=== PATIENT | male | born 1945 | race Caucasian/White ===

== ENCOUNTER → 2025-03-04 | Outpatient (CLI) | payer OTHER ==
[2025-03-09 15:53] LABS: ALBUMIN %,URINE 61.9 %; ALPHA-1 %,URINE 3.2 %; ALPHA-2 %,URINE 6.7 %; BETA GLOBULIN %,URINE 12.8 %; GAMMA GLOBULIN %,URINE 15.4 %; HOURS COLLECTED Random hr; PARAPROTEIN %,URINE 0.0 %
== END ==
LOC: LAB SHORT 06:30 → LAB 06:30
PROVIDERS: Internal Medicine Nephrology
DX: N18.30 Chronic kidney disease, stage 3 unspecified (principal); D63.1 Anemia in chronic kidney disease; E55.9 Vitamin D deficiency, unspecified; E78.00 Pure hypercholesterolemia, unspecified; R76.9 Abnormal immunological finding in serum, unspecified; R94.5 Abnormal results of liver function studies; R94.6 Abnormal results of thyroid function studies; D51.8 Other vitamin B12 deficiency anemias; D52.8 Other folate deficiency anemias; D50.9 Iron deficiency anemia, unspecified
CPT/HCPCS: 84156; 84166; 86335